=== PATIENT | male | born 1955 | race Caucasian/White ===

== ENCOUNTER 2017-11-07 01:17 | Emergency (ER) | payer MEDICARE ==
[~2017-11-07] VITALS: Ht 182.9 cm; Wt 131.5 kg
--- NOTE | 2017-11-07 05:43 | NUR ---
PT AMBULATORY TO ER BED 3. 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 PT PLACED ON IT SOFTWARE ENGINEER. VSS/RESP EVEN UNLABORED/NAD NOTED/SKIN WARM AND DRY/DENIES N-V-D/AFEBRILE/AOX4. AWAITING MD CONTRERAS.
--- NOTE | 2017-11-07 06:05 | NUR ---
AT BEDSIDE FOR EVAL.
--- NOTE | 2017-11-07 06:20 | NUR ---
EMT AT BEDSIDE FOR EKG.
[2017-11-07] MEDS ORDERED: KETOROLAC TROMETHAMINE INJ 30 MG/ML VIAL ONE (06:27)
[2017-11-07] MEDS ORDERED: MORPHINE SULFATE INJ 4 MG/ML DISP.SYRIN ONE (06:28)
[2017-11-07] MEDS ORDERED: ONDANSETRON 4 MG TAB.RAPDIS ONE (06:28)
[2017-11-07] MEDS ORDERED: KETOROLAC TROMETHAMINE INJ 60 MG/2 ML VIAL IM ONE (06:30)
[2017-11-07] MEDS ORDERED: MORPHINE SULFATE INJ 4 MG/ML DISP.SYRIN IM ONE (06:30)
[2017-11-07] MEDS ORDERED: ONDANSETRON 4 MG TAB.RAPDIS SL ONE (06:30)
--- NOTE | 2017-11-07 07:14 | NUR ---
ENDORSED TO [facility] FOR ROSANGELA.
--- NOTE | 2017-11-07 07:36 | NUR ---
Patient discharged to home in stable condition. Written and verbal after care instructions given. Patient verbalizes understanding of instruction.
[2017-11-07 07:37] VITALS: BP 143/76
== END 2017-11-07 07:39 | disposition home or self-care (01) ==
LOC: ER 01:20
DX: S29.012A Strain of muscle and tendon of back wall of thorax, initial encounter (principal); R06.02 Shortness of breath; M62.830 Muscle spasm of back; G47.30 Sleep apnea, unspecified; X58.XXXA Exposure to other specified factors, initial encounter; Y93.89 Activity, other specified; Y92.89 Other specified places as the place of occurrence of the external cause; Y99.8 Other external cause status
CPT/HCPCS: 93005; 96372 ×2; 99284; A4606; J1885; J2270; Q0162; Z7610